=== PATIENT | female | born 1965 | race Caucasian/White ===

== ENCOUNTER 2017-01-04 11:15 | Emergency (ER) | payer OTHER ==
[~2017-01-04] VITALS: Wt 56.7 kg
[~2017-01-04 11:15] MED LIST: CIPROFLOXACIN500 MG PO; ELAVIL25 MG PO; MOTRIN600 MG PO; PYRIDIUM200 MG PO; RESTORIL15 MG PO; SUMATRIPTA6 MG/0.54 SQ; VICODIN 5/500 505 MG PO; XANAX0.25 MG PO
[2017-01-04] MEDS ORDERED: OMNICEF300 MG PO (12:19)
[2017-01-04] MEDS ORDERED: FLONASE ALLERG9.9 ML NAS (12:19)
[2017-01-04] MEDS ORDERED: CLARITIN10 MG PO (12:19)
[2017-01-04] MEDS ORDERED: ROBITUSSIN AC 110 ML PO (12:19)
== END 2017-01-04 13:40 | disposition home or self-care (01) ==
LOC: ED 11:15
DX: H66.91 Otitis media, unspecified, right ear (principal); G43.909 Migraine, unspecified, not intractable, without status migrainosus; F17.200 Nicotine dependence, unspecified, uncomplicated

== ENCOUNTER 2017-06-29 00:07 | Inpatient (IN) | payer OTHER ==
[~2017-06-29] VITALS: Ht 168.9 cm; Wt 58.6 kg
[2017-06-29] VITALS (11 sets, daily range): BP systolic 80–104; BP diastolic 50–70
[~2017-06-29 00:07] MED LIST changes: +CLARITIN10 MG PO; +FLONASE ALLERG9.9 ML NAS; +OMNICEF300 MG PO; +ROBITUSSIN AC 110 ML PO
[2017-06-29 00:30] LABS: BASO % 0.1 % (0.0-1.0); EOS # 0.1 10*3/uL (0.0-0.4); HEMATOCRIT 35.4 % (37.0-47.0); HEMOGLOBIN 12.1 g/dl (12.0-16.0); LYMPH # 2.4 10*3/uL (1.3-4.4); LYMPH % 29.4 % (27.0-41.0); MEAN CELL VOLUME 94.7 fl (81.0-99.0); MEAN CORPUSCULAR HGB 32.4 pg (27.0-31.0); MEAN CORPUSCULAR HGB CONC 34.2 g/dl (33.0-37.0); MEAN PLATELET VOLUME 10.4 fl (9.6-12.3); MONO # 0.6 10*3/uL (0.1-1.0); MONO % 6.9 % (3.0-9.0); NEUT % 62.4 % (47.0-73.0); PLATELET COUNT AUTOMATED 209 10*3/uL (130-400); RED BLOOD COUNT 3.74 10*6/uL (4.10-5.10); RED CELL DISTRI WIDTH 12.8 % (0-14.5); WHITE BLOOD COUNT 8.1 10*3/uL (4.8-10.8)
[2017-06-29 00:41] LABS: ACT PARTIAL THROMBO TIME 27.7 SECONDS (20.8-31.5)
[2017-06-29 00:46] LABS: ALBUMIN 3.7 gm/dl (3.1-4.5); ALKALINE PHOSPHATASE 66 U/L (45-117); BUN 20 mg/dl (7-24); CHLORIDE 107 mmol/L (98-107); CREATININE 0.74 mg/dL (0.55-1.02); MAGNESIUM 2.1 mg/dL (1.5-2.1); POTASSIUM 3.7 mmol/L (3.5-5.1); SGOT/AST 11 IU/L (3-35); SGPT/ALT 12 U/L (12-78); SODIUM 140 mmol/L (136-145); TOTAL PROTEIN 6.7 gm/dL (6.4-8.2)
[2017-06-29 00:48] LABS: TROPONIN I < 0.015 ng/ml (<0.045)
--- NOTE | 2017-06-29 01:37 | NUR ---
PT IS ASLEEP IN ROOM, WHEN AWOKEN SHE STATED HER PAIN IS "4 OUT OF 10 STILL WHEN I AM JUST LAYING HERE"
--- NOTE | 2017-06-29 02:40 | NUR ---
report given to ana maría huerta
--- NOTE | 2017-06-29 02:50 | NUR ---
A 51, admitted to 5E, under the services of FRENCH Garcia DO with a diagnosis of CHEST PAIN OF UNCERTAIN ETIOLOGY. Chief complaint is PT PRESENTS [facility] WITH C/O CHEST PAIN AND GENERALIZED PAIN ALL OVER BODY. PT STATES SHE WAS SITTING AT HOME WHEN THE PAIN CAME ON. PT STATES SHE HAS PAIN IN HER LEFT ARM THAT GOES INTO HER LEFT SIDE OF NECK. Patient arrived via wheel chair from ER. Monitor applied. Initial assessment completed. Vital signs taken and recorded. FRENCH GARCIA DO notified of admission to the unit. Orders received. See assessment for past medical history, medications and allergies. Patient and/or family oriented to unit. [facility] visitation policy reviewed. Clothing/patient valuable form completed. AYSHA DUNN A
--- NOTE | 2017-06-29 04:32 | NUR ---
PT. HAD $480.00 THIS WAS COUNTED AND TAKEN TO LEGAL EXECUTIVE AND IS IN LOCKED UP IN LOCKER #14.
[2017-06-29 06:26] LABS: EOS # 0.1 10*3/uL (0.0-0.4); EOS % 1.8 % (1.0-4.0); HEMATOCRIT 33.3 % (37.0-47.0); HEMOGLOBIN 11.5 g/dl (12.0-16.0); LYMPH % 43.1 % (27.0-41.0); MEAN CELL VOLUME 95.4 fl (81.0-99.0); MEAN CORPUSCULAR HGB CONC 34.5 g/dl (33.0-37.0); MEAN PLATELET VOLUME 10.4 fl (9.6-12.3); MONO # 0.7 10*3/uL (0.1-1.0); MONO % 10.1 % (3.0-9.0); NEUT # 3.2 10*3/uL (2.3-7.9); NEUT % 44.9 % (47.0-73.0); PLATELET COUNT AUTOMATED 177 10*3/uL (130-400); RED BLOOD COUNT 3.49 10*6/uL (4.10-5.10); RED CELL DISTRI WIDTH 12.9 % (0-14.5); WHITE BLOOD COUNT 7.1 10*3/uL (4.8-10.8)
[2017-06-29 07:02] LABS: ACT PARTIAL THROMBO TIME 28.4 SECONDS (20.8-31.5)
[2017-06-29 07:36] LABS: VITAMIN D, 25-HYDROXY 45.6 ng/mL (30-100)
[2017-06-29 07:37] LABS: ALBUMIN 3.1 gm/dl (3.1-4.5); ALKALINE PHOSPHATASE 60 U/L (45-117); BUN 17 mg/dl (7-24); CHLORIDE 111 mmol/L (98-107); CHOLESTEROL 170 mg/dL (<200); CREATININE 0.63 mg/dL (0.55-1.02); FREE T4 1.05 ng/dl (0.76-1.46); HDL CHOLESTEROL 40 mg/dl (40-60); LDL CHOLESTEROL 114 mg/dL (9-159); MAGNESIUM 2.2 mg/dL (1.5-2.1); PHOSPHOROUS 3.4 mg/dL (2.5-4.9); POTASSIUM 3.7 mmol/L (3.5-5.1); SGOT/AST 10 IU/L (3-35); SGPT/ALT 12 U/L (12-78); SODIUM 142 mmol/L (136-145); TRIGLYCERIDES 81 mg/dl (<150); VLDL CHOLESTEROL 16 mg/dL (6-40)
[2017-06-29 07:42] LABS: THYROID STIM HORMONE (HS) 0.892 uIU/ml (0.358-4.75)
--- NOTE | 2017-06-29 09:28 | NUR ---
MEDICATED WITH PRN IV MORPHINE FOR SEVERE SHOOTING PAIN FROM LEFT SIDE OF CHEST UP LT SIDE OF NECK.
--- NOTE | 2017-06-29 10:03 | NUR ---
PRN IV MORPHINE WAS MINIMALLY EFFECTIVE, PER PATIENT.
[2017-06-29] MEDS ORDERED: RESTORIL30 M1 PO (10:14)
[2017-06-29] MEDS ORDERED: GUAIFEN-CODEIN118 ML PO (10:15)
[2017-06-29] MEDS ORDERED: IMITREX20 M1 NAS (10:20)
--- NOTE | 2017-06-29 11:23 | NUR ---
MEDICATED WITH MILK OF MAGNESIA FOR CONSTIPATION ASSOCIATED WITH THE USE OF MORPHINE.
--- NOTE | 2017-06-29 12:22 | NUR ---
MEDICATED WITH PRN PO FLEXERIL AND NORCO FOR PAIN TO LEFT RIB CAGE AREA. ALSO ADMINISTERING IVF BOLUS OF 1000ML ORDERED FOR HYPOTENSION.
--- NOTE | 2017-06-29 13:51 | NUR ---
PRN NORCO AND FLEXERIL EFFECTIVE, PER PATIENT.
--- NOTE | 2017-06-29 14:30 | NUR ---
AFTER 1LITER NSS IV BOLUS, BLOOD PRESSURE 88/60 MANUALLY.
--- NOTE | 2017-06-29 17:28 | NUR ---
PER PATIENT PAIN TO LEFT SIDE OF CHEST, NECK, AND SHOULDER IS SEVERE NOW WITH OR WITHOUT MOVEMENT OF THAT SIDE OF THE BODY. SHE IS ANXIOUS AND TEARFUL. MEDICATED AT THIS TIME WITH PRN IV MORPHINE FOR PAIN.
--- NOTE | 2017-06-29 18:10 | NUR ---
PER PATIENT, MORPHINE EFFECTIVE FOR NECK AND SHOULDER PAIN, BUT LEFT SIDE OF CHEST PAIN CONTINUES WHETHER MOVING OR LYING STILL. OBTAINED ORDER FOR IV DILAUDID 0.5MG X 1, STAT TROPONIN I, ECHO, AND FLU A SWAB.
--- NOTE | 2017-06-29 18:30 | NUR ---
MEDICATED WITH IV DILAUDID 0.5MG X 1 ORDERED FOR PAIN TO LEFT CHEST (LOWER CHEST) AREA
--- NOTE | 2017-06-29 23:30 | NUR ---
PATIENT MEDICATED WITH IV MORPHINE AND PO FLEXERIL PER PRN ORDER FOR C/O LEFT SIDED RIB PAIN/LEFT ARM PAIN. WILL MONITOR EFFECTIVENESS. CALL LIGHT LEFT IN REACH.
[2017-06-30] VITALS: BP 105/58
--- NOTE | 2017-06-30 01:32 | NUR ---
PATIENT STATES EARLIER MEDICATIONS HAVE HELPED SOME. NOW REQUESTING SOMETHING TO HELP HER SLEEP. PO RESTORIL ADMINISTERED PER PRN ORDER. WILL MONITOR EFFECTIVENESS. CALL LIGHT LEFT IN REACH.
--- NOTE | 2017-06-30 02:46 | NUR ---
EARLIER RESTORIL APPEARS EFFECTIVE. PATIENT RESTING IN BED WITH EYES CLOSED. NO S/S OF DISTRESS NOTED. WILL MONITOR. CALL LIGHT IN REACH.
--- NOTE | 2017-06-30 06:11 | NUR ---
PO SUMATRIPTAN ADMINISTERED PER PRN ORDER FOR PT C/O MIGRAINE HEADACHE. PATIENT REQUESTING TO ONLY TAKE 25 MG AT THIS TIME. PATIENT STATES SHE IS ONLY USED TO A NASAL SPRAY, AND WANTS TO SEE HOW HALF A PILL AFFECTS HER FIRST. WILL MONITOR EFFECTIVENESS. CALL LIGHT LEFT IN REACH.
[2017-06-30 06:25] LABS: BASO % 0.1 % (0.0-1.0); EOS # 0.2 10*3/uL (0.0-0.4); EOS % 2.4 % (1.0-4.0); HEMATOCRIT 33.8 % (37.0-47.0); HEMOGLOBIN 11.3 g/dl (12.0-16.0); LYMPH # 2.7 10*3/uL (1.3-4.4); MEAN CELL VOLUME 97.7 fl (81.0-99.0); MEAN CORPUSCULAR HGB 32.7 pg (27.0-31.0); MEAN CORPUSCULAR HGB CONC 33.4 g/dl (33.0-37.0); MEAN PLATELET VOLUME 10.9 fl (9.6-12.3); MONO # 0.6 10*3/uL (0.1-1.0); MONO % 8.4 % (3.0-9.0); NEUT # 3.3 10*3/uL (2.3-7.9); NEUT % 48.8 % (47.0-73.0); PLATELET COUNT AUTOMATED 172 10*3/uL (130-400); RED BLOOD COUNT 3.46 10*6/uL (4.10-5.10); RED CELL DISTRI WIDTH 13.2 % (0-14.5); WHITE BLOOD COUNT 6.8 10*3/uL (4.8-10.8)
[2017-06-30 06:45] LABS: BUN 9 mg/dl (7-24); CHLORIDE 108 mmol/L (98-107); CREATININE 0.63 mg/dL (0.55-1.02); POTASSIUM 4.6 mmol/L (3.5-5.1); SODIUM 140 mmol/L (136-145)
--- NOTE | 2017-06-30 07:55 | NUR ---
SHIFT ASSESSMENT COMPLETED. PATIENT COMPLAINS OF A MIGRAINE WITH NAUSEA. ZOFRAN 4MG GIVEN FOR NAUSEA. PATIENT IS REFUSING PAIN MEDICATION AT THIS TIME. BLINDS WERE CLOSED AND DOOR WAS CLOSED. PATIENT HAS NOT HAD A BM IN 4-5 DAYS. REFUSING DULCOLAX AT THIS TIME. BED IN LOW POSITION. CALL LIGHT WITHIN REACH.
[2017-06-30 08:00] VITALS: BP 102/68
--- NOTE | 2017-06-30 09:00 | NUR ---
Manufacturing Team Leader in to talk to patient. Patient states lives at home with family. There are few steps in the home. Physician: ken [facility]: [facility] Home health services: none Patient's level of ADLs: INDEPENDENT Patient has working utilities: all working DME: none Follow-up physician's appointment after d/c: will be made by hospitalist nurse director upon discharge Does patient want to access PORTAL?: no Discharge plan discussed with patient, patient lives at home, is independent in adls and ambualtion, works, denies any home needs. DEBORAH CASTANO
--- NOTE | 2017-06-30 09:55 | NUR ---
ZOFRAN EFFECTIVE FOR NAUSEA PER PATIENT. PATIENT STILL ADMITS TO A HEADACHE BUT IS REFUSING PAIN MEDS AT THIS TIME.
--- NOTE | 2017-06-30 11:44 | NUR ---
ONE TIME DOSE OF FIORICET GIVEN FOR MIGRAINE PRESCRIBED.
[2017-06-30 12:00] VITALS: BP 92/56
--- NOTE | 2017-06-30 14:59 | NUR ---
MILK OF MAG GIVEN PER PATIENT REQUEST.
[2017-06-30 16:00] VITALS: BP 108/64
--- NOTE | 2017-06-30 16:38 | NUR ---
MORPHINE 2MG GIVEN PER PATIENT REQUEST FOR AHEADACHE RATING A 7/10 AND LEFT SIDE PAIN 3/10.
[2017-06-30 20:00] VITALS: BP 103/51
--- NOTE | 2017-06-30 20:56 | NUR ---
SPOKE TO AT THIS TIME REGARDING PATIENT'S REQUEST FOR A DECONGESTANT. PATIENT REFUSING PAIN MEDICATION AT THIS TIME BUT STATES SHE WANTS SOMETHING FOR HER SINUSE HEADACHE. NEW ORDERS TO FOLLOW PER . PATIENT ALSO REQUESTING TO GET A SHOWER AT THIS TIME, BUT IS ON NURSE PRACTITIONER ADULT. PER , OKAY TO TAKE MONITOR OFF FOR PATIENT TO SHOWER AND THEN PUT HER BACK ON.
--- NOTE | 2017-06-30 21:11 | NUR ---
PO DULCOLAX ADMINISTERED PER PRN ORDER FOR PT C/O CONSTIPATION. PATIENT STATES LAST BM WAS Friday06/27/17 OR Friday06/28/17. SHE STATES SHE CAN'T REMEMBER HER LAST BM. STATES SHE DOES FEEL CONSTIPATED AND EARLIER MOM HAS STILL NOT BEEN EFFECTIVE. WILL MONITOR PATIENT. FLUIDS ENCOURAGED. PATIENT ALSO ENCOURAGED TO GET OOB TO WALK.
--- NOTE | 2017-06-30 21:45 | NUR ---
PO GUAIFENESIN ADMINISTERED PER ONE TIME ORDER. PATIENT ALSO MEDICATED WITH PO RESTORIL TO HELP HER SLEEP. WILL MONITOR EFFECTIVENESS. CALL LIGHT IN REACH.
--- NOTE | 2017-06-30 23:59 | NUR ---
IV MORPHINE ADMINISTERED SLOWLY PER PRN ORDER FOR C/O LEFT RIB/ARM/NECK PAIN RATED 6/10. WILL MONITOR EFFECTIVENESS. PATIENT STATES EARLIER RESTORIL "STARTING TO KICK IN." CALL LIGHT LEFT IN REACH.
[2017-07-01] VITALS: BP 104/75
--- NOTE | 2017-07-01 00:43 | NUR ---
PATIENT STATES EARLIER MORPHINE WAS EFFECTIVE. WILL CONTINUE TO MONITOR.
--- NOTE | 2017-07-01 02:32 | NUR ---
PATIENT UP WALKING IN HALLWAY. STATES SHE FEELS "SO MUCH BETTER THAN YESTERDAY." PATIENT RETURNED TO ROOM, LAYING IN BED. CALL LIGHT LEFT IN REACH. WILL MONITOR.
[2017-07-01 06:19] LABS: BASO % 0.4 % (0.0-1.0); EOS # 0.2 10*3/uL (0.0-0.4); EOS % 3.3 % (1.0-4.0); HEMATOCRIT 35.2 % (37.0-47.0); HEMOGLOBIN 11.9 g/dl (12.0-16.0); LYMPH # 2.7 10*3/uL (1.3-4.4); LYMPH % 48.9 % (27.0-41.0); MEAN CELL VOLUME 95.7 fl (81.0-99.0); MEAN CORPUSCULAR HGB 32.3 pg (27.0-31.0); MEAN CORPUSCULAR HGB CONC 33.8 g/dl (33.0-37.0); MEAN PLATELET VOLUME 10.7 fl (9.6-12.3); MONO # 0.6 10*3/uL (0.1-1.0); MONO % 10.5 % (3.0-9.0); NEUT % 36.7 % (47.0-73.0); PLATELET COUNT AUTOMATED 187 10*3/uL (130-400); RED BLOOD COUNT 3.68 10*6/uL (4.10-5.10); RED CELL DISTRI WIDTH 12.7 % (0-14.5); WHITE BLOOD COUNT 5.4 10*3/uL (4.8-10.8)
[2017-07-01 06:59] LABS: ALBUMIN 3.2 gm/dl (3.1-4.5); ALKALINE PHOSPHATASE 62 U/L (45-117); BUN 7 mg/dl (7-24); CHLORIDE 106 mmol/L (98-107); CREATININE 0.73 mg/dL (0.55-1.02); POTASSIUM 3.8 mmol/L (3.5-5.1); SGOT/AST 10 IU/L (3-35); SGPT/ALT 16 U/L (12-78); SODIUM 141 mmol/L (136-145); TOTAL PROTEIN 6.5 gm/dL (6.4-8.2)
[2017-07-01 08:00] VITALS: BP 90/50
--- NOTE | 2017-07-01 09:00 | NUR ---
case management visits with patient, patient denies any home needs
--- NOTE | 2017-07-01 09:43 | NUR ---
MEDICATED WITH MOTRIN X 1 PO FOR NECK/HEAD/SHOULDER/LEFT RIB CAGE PAIN AND ALSO PRN PO MILK OF MAGNESIA FOR CONSTIPATION.
--- NOTE | 2017-07-01 11:12 | NUR ---
MEDICATED WITH PRN IV MORPHINE FOR LEFT SIDE PAIN AND FLEXERIL FOR MUSCLE TIGHTNESS AND PAIN TO LEFT SIDE D/T MOTRIN GIVEN EARLIER WAS INEFFECTIVE.
[2017-07-01] MEDS ORDERED: CYCLOBENZAPRINE10 MG PO (12:39)
--- NOTE | 2017-07-01 12:45 | NUR ---
PRN MILK OF MAGNESIA EFFECTIVE, PER PATIENT. PO FLEXERIL AND IV MORPHINE SOMEWHAT EFFECTIVE FOR PAIN. PREPARING PATIENT FOR DISCHARGE, SHE WILL FOLLOW UP WITH DR. BRAN THIS WEEK IN HIS OFFICE.
--- NOTE | 2017-07-01 13:09 | NUR ---
Discharge instructions reviewed with patient. Patient receptive and verbalizes understanding. Follow-up care arranged. Written instructions given to patient. CARINA YOUNG
--- NOTE | 2017-07-01 13:38 | NUR ---
PATIENT DISCHARGED TO [facility], AMBULATORY, FOR TRANSPORT HOME BY PRIVATE VEHICLE WITH HER MOTHER.
== END 2017-07-01 13:38 | disposition home or self-care (01) | DRG 392 ==
LOC: ED 00:07 → EDHOLD 01:48 → 5E 01:48
PROVIDERS: Emergency Medicine Emergency Medical Services; Hospitalist; Internal Medicine; Internal Medicine Nephrology; ADMIT Internal Medicine
DX: K21.9 Gastro-esophageal reflux disease without esophagitis (principal); E44.0 Moderate protein-calorie malnutrition; E87.8 Other disorders of electrolyte and fluid balance, not elsewhere classified; E83.41 Hypermagnesemia; R07.89 Other chest pain; G43.909 Migraine, unspecified, not intractable, without status migrainosus; E53.8 Deficiency of other specified B group vitamins; D64.9 Anemia, unspecified; D72.820 Lymphocytosis (symptomatic); D72.821 Monocytosis (symptomatic); F17.210 Nicotine dependence, cigarettes, uncomplicated; F41.9 Anxiety disorder, unspecified; M79.1 Myalgia; Z98.51 Tubal ligation status; Z84.1 Family history of disorders of kidney and ureter; Z82.49 Family history of ischemic heart disease and other diseases of the circulatory system; Z79.899 Other long term (current) drug therapy; Z71.6 Tobacco abuse counseling; Z68.20 Body mass index [BMI] 20.0-20.9, adult

== ENCOUNTER → 2019-10-21 | Outpatient (CLI) | payer OTHER ==
[~2019-10-21] MED LIST changes: +CHLORZOXAZONE500 M2 PO; +CYCLOBENZAPRINE10 MG PO; +GUAIFEN-CODEIN118 ML PO; +IMITREX20 M1 NAS; +NAPROSYN500 MG PO; +RESTORIL30 M1 PO
[2019-10-21 09:40] LABS: ALBUMIN 3.9 gm/dl (3.1-4.5); ALKALINE PHOSPHATASE 65 U/L (45-117); BUN 15 mg/dl (7-24); CHLORIDE 109 mmol/L (98-107); CHOLESTEROL 217 mg/dL (<200); CREATININE 0.74 mg/dL (0.55-1.02); HDL CHOLESTEROL 43 mg/dl (40-60); LDL CHOLESTEROL 145 mg/dL (9-159); POTASSIUM 3.9 mmol/L (3.5-5.1); SGOT/AST 13 IU/L (3-35); SGPT/ALT 19 U/L (12-78); SODIUM 142 mmol/L (136-145); TOTAL PROTEIN 7.1 gm/dL (6.4-8.2); TRIGLYCERIDES 143 mg/dl (<150); VLDL CHOLESTEROL 29 mg/dL (6-40)
[2019-10-21 13:31] LABS: BILIRUBIN NEGATIVE (NEGATIVE); BLOOD 2+ (NEGATIVE); CLARITY SL CLOUDY (CLEAR); COLOR YELLOW (YELLOW); GLUCOSE NEGATIVE (NEGATIVE); KETONE NEGATIVE (NEGATIVE)
[2019-10-21 13:32] LABS: BACTERIA 1+; LEUKO ESTERASE TRACE (NEGATIVE); NITRITE NEGATIVE (NEGATIVE); UROBILINOGEN 0.2 E.U./dl (0.2-1.0)
== END | disposition home or self-care (01) ==
LOC: MAMMO 10-11 09:30 → LAB 08:18 → MAMMO 10:00
PROVIDERS: Family Medicine
DX: Z12.31 Encounter for screening mammogram for malignant neoplasm of breast (principal); N30.00 Acute cystitis without hematuria; R07.9 Chest pain, unspecified

== ENCOUNTER → 2019-11-16 | Outpatient (CLI) | payer OTHER | END | disposition home or self-care (01) | LOC: MAMMO 12:33 | DX: N60.01 Solitary cyst of right breast (principal) ==

== ENCOUNTER → 2020-11-24 | Outpatient (CLI) | payer OTHER | END | disposition home or self-care (01) | LOC: COVID19 10:22 | PROVIDERS: ATTEND Family Medicine | DX: U07.1 COVID-19 (principal) ==

== ENCOUNTER → 2021-11-14 | Outpatient (CLI) | payer OTHER ==
[2021-11-14 10:08] LABS: BUN 11 mg/dl (7-24); CHLORIDE 110 mmol/L (98-107); CHOLESTEROL 207 mg/dL (<200); CREATININE 0.72 mg/dL (0.55-1.02); LDL CHOLESTEROL 141 mg/dL (9-159); SODIUM 138 mmol/L (136-145); TRIGLYCERIDES 146 mg/dl (<150)
== END ==
LOC: MAMMO 10-18 14:00 → LAB 09:31 → MAMMO 10:30
PROVIDERS: ATTEND Family Medicine
DX: Z12.31 Encounter for screening mammogram for malignant neoplasm of breast (principal); Z13.1 Encounter for screening for diabetes mellitus; Z13.220 Encounter for screening for lipoid disorders; N63.20 Unspecified lump in the left breast, unspecified quadrant; N63.10 Unspecified lump in the right breast, unspecified quadrant

== ENCOUNTER → 2023-10-21 | Outpatient (CLI) | payer OTHER | END | disposition home or self-care (01) | LOC: US 00:59 | PROVIDERS: ATTEND Family Medicine | DX: R10.11 Right upper quadrant pain (principal) ==

== ENCOUNTER → 2024-04-28 | Outpatient (CLI) | payer OTHER ==
[2024-04-28 10:16] LABS: BASO % 0.1 % (0.0-1.0); EOS # 0.1 10*3/uL (0.0-0.4); HEMATOCRIT 40.7 % (37.0-47.0); LYMPH % 27.8 % (27.0-41.0); MEAN CELL VOLUME 94.2 fl (81.0-99.0); MEAN CORPUSCULAR HGB 31.3 pg (27.0-31.0); MEAN CORPUSCULAR HGB CONC 33.2 g/dl (33.0-37.0); MEAN PLATELET VOLUME 10.3 fl (9.6-12.3); MONO # 0.4 10*3/uL (0.1-1.0); MONO % 5.9 % (3.0-9.0); NEUT # 4.5 10*3/uL (2.3-7.9); NEUT % 63.9 % (47.0-73.0); PLATELET COUNT AUTOMATED 264 10*3/uL (130-400); RED BLOOD COUNT 4.32 10*6/uL (4.10-5.10); RED CELL DISTRI WIDTH 13.7 % (0-14.5); WHITE BLOOD COUNT 7.1 10*3/uL (4.8-10.8)
[2024-04-28 10:59] LABS: ALKALINE PHOSPHATASE 76 U/L (46-116); BUN 10 mg/dl (9-23); CHLORIDE 111 mmol/L (98-107); CHOLESTEROL 207 mg/dL (<200); LDL CHOLESTEROL 144 mg/dL (9-159); POTASSIUM 4.5 mmol/L (3.4-5.1); SGPT/ALT 10 U/L (5-49); TOTAL PROTEIN 6.8 gm/dL (6.0-8.0); TRIGLYCERIDES 94 mg/dl (<150)
== END | disposition home or self-care (01) ==
LOC: LAB 09:55
PROVIDERS: ATTEND Nurse Practitioner Family
DX: Z13.228 Encounter for screening for other metabolic disorders (principal); Z13.220 Encounter for screening for lipoid disorders; Z13.0 Encounter for screening for diseases of the blood and blood-forming organs and certain disorders involving the immune mechanism; E55.9 Vitamin D deficiency, unspecified; Z76.89 Persons encountering health services in other specified circumstances

== ENCOUNTER 2025-03-25 16:42 | Emergency (ER) | payer OTHER ==
[~2025-03-25] VITALS: Ht 165.1 cm; Wt 65.8 kg
[2025-03-25] MEDS ORDERED: ESCITALOPRAM OX20 MG PO (17:11)
[2025-03-25 18:01] LABS: BILIRUBIN Negative (Negative); BLOOD Trace-Intact (Negative); CLARITY Cloudy (Clear); COLOR Yellow (Yellow); KETONE Trace (Negative); LEUKO ESTERASE 2+ (Negative); NITRITE Negative (Negative); PH 6.5 (4.5-8.0); SPECIFIC GRAVITY 1.025 (1.001-1.030); UROBILINOGEN 1.0 E.U./dl (0.0-1.0)
[2025-03-25] MEDS ORDERED: Amoxicillin/Clavulanate Pota 875 MG TAB PO ONE (18:05)
[2025-03-25] MEDS ORDERED: BENZONATATE 100 MG CAP PO ONE (18:05)
[2025-03-25 18:10] LABS: BACTERIA 2+
[2025-03-25] MEDS ORDERED: BENZONATATE100 M1 PO (18:22)
[2025-03-25] MEDS ORDERED: AMOX-CLAV 875-1 EACH PO (18:22)
== END 2025-03-25 18:48 | disposition home or self-care (01) ==
LOC: ED 16:42
PROVIDERS: Internal Medicine
DX: J40 Bronchitis, not specified as acute or chronic (principal); N39.0 Urinary tract infection, site not specified; F17.200 Nicotine dependence, unspecified, uncomplicated; Z79.899 Other long term (current) drug therapy; Z98.51 Tubal ligation status; Z98.890 Other specified postprocedural states

== ENCOUNTER 2025-04-14 12:18 | Emergency (ER) | payer OTHER ==
[~2025-04-14] VITALS: Ht 165.1 cm; Wt 68.0 kg
[~2025-04-14 12:18] MED LIST changes: +AMOX-CLAV 875-1 EACH PO; +BENZONATATE100 M1 PO; +ESCITALOPRAM OX20 MG PO
[2025-04-14] MEDS ORDERED: IBUPROFEN 600 MG TAB PO ONE (12:50)
== END 2025-04-14 13:44 | disposition home or self-care (01) ==
LOC: ED 12:18
DX: S96.912A Strain of unspecified muscle and tendon at ankle and foot level, left foot, initial encounter (principal); S96.911A Strain of unspecified muscle and tendon at ankle and foot level, right foot, initial encounter; Z79.899 Other long term (current) drug therapy; Z98.890 Other specified postprocedural states; Z87.891 Personal history of nicotine dependence; W18.42XA Slipping, tripping and stumbling without falling due to stepping into hole or opening, initial encounter; Y93.89 Activity, other specified; Y92.096 Garden or yard of other non-institutional residence as the place of occurrence of the external cause; Y99.8 Other external cause status